=== PATIENT | female | born 1995 | race Hispanic/Latino ===

== ENCOUNTER 2022-06-04 23:40 | Emergency (ER) | payer OTHER ==
[~2022-06-04] VITALS: Ht 182.9 cm; Wt 156.5 kg
[2022-06-05] MEDS ORDERED: ACETAMINOPHEN 1000 MG/100 ML IV STA (00:04)
[2022-06-05] MEDS ORDERED: ACETAMINOPHEN 1000 MG/100 ML 100 ML IV ONE (00:21)
[2022-06-05] MEDS ORDERED: SODIUM CHLORIDE 0.9% 1000ML 2,000 ML ONE (00:21)
[2022-06-05] MEDS ORDERED: CEFTRIAXONE 1 GM VIAL ONE (00:21)
[2022-06-05 00:28] LABS: BASOPHILS % 0.2 % (0.0-1.0); EOSINOPHILS % 0.1 % (0.0-6.0); HEMATOCRIT 39.1 % (34.2-44.1); HEMOGLOBIN 13.1 g/dL (12.0-16.0); LYMPHOCYTES # (AUTO) 1.2 (1.0-3.2); LYMPHOCYTES % 13.1 % (18.0-39.1); MEAN CORPUSCULAR HEMOGLOBIN 26.8 pg (28-32); MEAN CORPUSCULAR HGB CONC 33.5 g/dL (31-35); MONOCYTES # (AUTO) 0.8 (0.2-0.8); MONOCYTES % 8.8 % (4.4-11.3); NEUTROPHILS % 77.4 % (38.7-80.0); PLATELET COUNT 232 x10e3/uL (140-360); RED BLOOD COUNT 4.89 x10e6/uL (3.6-5.1); RED CELL DISTRIBUTION WIDTH 14.4 % (11.7-14.4)
[2022-06-05] MEDS ORDERED: SODIUM CHLORIDE 0.9% 1000ML 1,000 ML IV SCH (00:30)
[2022-06-05 00:32] LABS: CLARITY,URINE CLOUDY (CLEAR); COLOR,URINE YELLOW (YELLOW); KETONES,URINE 2+ (NEGATIVE); LEUKOCYTE ESTERASE ,URINE NEGATIVE (NEGATIVE); NITRITE,URINE NEGATIVE (NEGATIVE); PROTEIN,URINE DIPSTICK >=300 (NEGATIVE); URINE UROBILINOGEN 0.2 mg/dL (0.2 - 1)
[2022-06-05 00:37] LABS: AMORPHOUS SEDIMENT,URINE FEW (FEW); BACTERIA,URINE MODERATE /HPF; EPITHELIAL CELLS,URINE MANY /LPF; INR 1.13; PARTIAL THROMBOPLASTIN TIME 39.6 seconds (23.8-35.5); RBC,URINE 0-5 /HPF (0-5); YEAST,URINE FEW
[2022-06-05] MEDS: SODIUM CHLORIDE 0.9% 1000ML 1,000 ML IV SCH ×2 (00:45→02:33)
[2022-06-05 00:46] LABS: ALBUMIN 3.2 g/dL (3.5-5.0); ALBUMIN/GLOBULIN RATIO 0.6 (0.8-2.0); ANION GAP 18.7 mmol/L (8-16); CALCIUM 9.9 mg/dL (8.4-10.2); CREATININE, SERUM 0.95 mg/dL (0.57-1.11); POTASSIUM 3.7 mmol/L (3.5-5.1)
[2022-06-05] MEDS ORDERED: SODIUM CHLORIDE 0.9% 250ML 250 ML ONE (00:48)
[2022-06-05] MEDS ORDERED: DIFLUCAN200 MG PO (03:17)
[2022-06-05] MEDS ORDERED: CEFDINIR300 MG PO (03:17)
[2022-06-05] MEDS ORDERED: ONDANSETRON ODT4 MG PO (03:17)
[2022-06-05] MEDS ORDERED: IBUPROFEN800 MG PO (03:17)
[2022-06-05 03:38] VITALS: BP 124/76
== END 2022-06-05 03:36 | disposition home or self-care (01) ==
LOC: ER 23:50
DX: R50.9 Fever, unspecified (principal); N12 Tubulo-interstitial nephritis, not specified as acute or chronic; E86.0 Dehydration; R11.2 Nausea with vomiting, unspecified; E11.65 Type 2 diabetes mellitus with hyperglycemia; Z20.822 Contact with and (suspected) exposure to COVID-19
CPT/HCPCS: 36415; 71045; 74176; 80053; 81001; 82948; 83605; 84702; 85025; 85610; 85730; 87040; 87086; 87186; 93005; 99284; J0131; J0456; J0696; J7030; J7050; U0002

== ENCOUNTER 2022-08-04 16:24 | Emergency (ER) | payer OTHER ==
[~2022-08-04] VITALS: Ht 182.9 cm; Wt 156.5 kg
[~2022-08-04 16:24] MED LIST: CEFDINIR300 MG PO; DIFLUCAN200 MG PO; IBUPROFEN800 MG PO; ONDANSETRON ODT4 MG PO
[2022-08-04] MEDS ORDERED: KETOROLAC TROMETHAMINE 60 MG/2 ML VIAL IM ONE (16:30)
[2022-08-04] MEDS ORDERED: CYCLOBENZAPRINE HCL 10 MG TAB PO ONE (16:30)
[2022-08-04] MEDS ORDERED: CYCLOBENZAPRINE10 MG PO (16:38)
[2022-08-04 17:59] VITALS: PULSE 108; RESP 18; O2SAT 100
== END 2022-08-04 17:30 | disposition home or self-care (01) ==
LOC: ER 16:28
DX: M54.50 Low back pain, unspecified (principal); X50.0XXA Overexertion from strenuous movement or load, initial encounter; Y92.89 Other specified places as the place of occurrence of the external cause
CPT/HCPCS: 99283; J1885